=== PATIENT | female | born 1990 | race African-American/Black ===

== ENCOUNTER 2017-05-01 08:51 | Emergency (ER) | payer MEDICAID, OTHER ==
[~2017-05-01] VITALS: Ht 157.5 cm; Wt 57.0 kg
[2017-05-01 09:04] VITALS: BP 101/65
== END 2017-05-01 10:41 | disposition home or self-care (01) ==
LOC: ER 08:56
DX: H66.92 Otitis media, unspecified, left ear (principal); D64.9 Anemia, unspecified
CPT/HCPCS: 99283

== ENCOUNTER 2017-07-17 00:26 | Emergency (ER) | payer MEDICAID ==
[~2017-07-17] VITALS: Ht 157.5 cm; Wt 57.0 kg
[2017-07-17] MEDS ORDERED: PREDNISONE 20MG TABLET PO ONE (04:30)
[2017-07-17] MEDS ORDERED: KETOROLAC 60MG/2ML VIAL IM ONE (04:30)
[2017-07-17 05:03] VITALS: BP 103/69
== END 2017-07-17 05:40 | disposition home or self-care (01) ==
LOC: ER 00:26
DX: J02.9 Acute pharyngitis, unspecified (principal); M06.9 Rheumatoid arthritis, unspecified; D64.9 Anemia, unspecified
CPT/HCPCS: 96372; 99283; J1885; J7512